=== PATIENT | male | born 1955 | race Caucasian/White ===

== ENCOUNTER 2016-06-09 16:21 | Emergency (ER) | payer BC ==
[~2016-06-09] VITALS: Ht 175.3 cm; Wt 73.9 kg
[2016-06-09] MEDS ORDERED: ALPRAZOLAM1 MG PO (16:36)
[2016-06-09] MEDS ORDERED: NEURONTIN100 MG PO (16:37)
[2016-06-09] MEDS ORDERED: KEFLEX 500MG.500 MG PO (17:13)
--- NOTE | 2016-06-09 17:14 | [facility] Report ---
History of Present Issue Date/Time Seen by Provider 06/09/16 1650 Visit Reason Pt arrived:Walked Presenting Problem:PT STATES NOTICING A BLISTER TO BOTTOM OF RIGHT GREAT TOE THIS MORNING. STATES AREA SOFTENED WHEN HE TOOK A SHOWER BUT IT DID NOT CHANGE IN SIZE Location if Accident: Onset of symptoms date/time:06/09/16/ or onset unknown for:MEDICAL HX UNKNOWN Have you (or family members/close friends) recently traveled outside the [place]? N If Yes, where/when: Have you had exposure to infectious disease within the past month? TB? Other? Specify: Patient states that he noticed a large fluid filled blister on his right great toe this morning states that he does not remembering doing anything to injure the toe but noticed the blister covered the whole bottom of the right toe and appeared to be filled with water. ALLERGIES Coded Allergies: No Known Allergies (06/09/16) Home Medications Reported Medications ALPRAZOLAM (Alprazolam 1MG) 1 MG PO QID PRN NERVES Gabapentin (Neurontin) 100 MG PO NIGHTLY History Medical History General CAD? No Angina: No MA: No Hypertension? No Hyperlipidemia? No CHF? No DVT? No PE? No COPD? No Asthma? No Anemia? No GERD? No Gastric ulcers? No GI Bleed? No Hernia? No Thyroid Problems? No Hypothyroidism? No CVA? No Seizures? No Diabetes? No Renal Insuffiency? No UTI? No Stones? No BPH? No GB Disease: No Nephritic Syndrome? No Asplenia? No Hepatitis? No Sickle Cell Disease? No Arthritis? No Migraines? No Cataracts? No Glaucoma? No MRSA? No HIV? No TB? No Anxiety? Yes Depression? No Cancer? No Immunization HX DT/Tetanus Unknown Surgical Hx Previous Surgery?N Social History Smoking Hx Smoker: Current Every Day Smoker Tobacco: Yes Type Cigarettes Alcohol Alcohol: Yes Review of Systems All Other Systems Reviewed and Negative Comment Large blister on the bottom of the right great toe Physical Exam Vital Signs Vital Signs Date Time Temp Pulse Resp B/P Pulse O2 O2 Flow FiO2 Ox Delivery Rate 06/09 1629 98.1 71 20 176/83 96 General Appearance normal appearance, WD/WN, no apparent distress Respiratory Status Yes: trachea midline, chest symmetrical, non tender chest. No: respiratory distress. Cardiovascular normal exam, regular rate/rhythm, no peripheral edema Extremities normal capillary refill, large fluid filled blister on bottom of right great toe Neurologic alert, supervisor offset plate preparation II-XII nml as tested, normal exam, no motor/sensory deficits, oriented x 3 Comments Patient denies injury to right great toe, denies pain, after examination admitted that he had used a heating pad last night and had foot resting on it for several hours. 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 No Departure Departure Time of Disposition 1710 Disposition DC Home or Self Care(routine) Clinical Impression Primary Impression: Blister of toe of right foot Qualifiers: Encounter type: initial encounter Qualified Code: S90.424A - Blister (nonthermal), right lesser toe(s), initial encounter Condition STABLE Referrals ELEANOR NOBLE M: [facility] Follow up kapil due to blister on feet Patient Instructions DI for Blisters Additional Instructions Do not puncture blister Take medication as prescribed Follow up with Dr Noble as advised Follow up with family doctor Prescriptions Current Visit Scripts CEPHALEXIN (Keflex 500MG Capsule) 500 MG PO Q6H #40 CAP at 1092
[2016-06-09 17:15] VITALS: BP 176/83
== END 2016-06-09 17:16 | disposition home or self-care (01) ==
LOC: UTC 16:21
DX: S90.424A Blister (nonthermal), right lesser toe(s), initial encounter (principal); F41.8 Other specified anxiety disorders